=== PATIENT | female | born 2005 | race Two or more races ===

== ENCOUNTER 2025-01-25 19:21 | Emergency (ER) | payer MEDICAID ==
[~2025-01-25] VITALS: Ht 154.9 cm; Wt 61.4 kg
[2025-01-25] MEDS: PREDNISONE 20MG TABLET PO ONE (20:57)
[2025-01-25 20:58] VITALS: PULSE 80; RESP 16; O2SAT 100
[2025-01-25] MEDS: IPRATROPIUM/ALBUTEROL 0.5-3(2.5)MG/3ML NEB HHN ONE (20:58)
[2025-01-25] MEDS ORDERED: P20 MT (22:22)
[2025-01-25] MEDS ORDERED: IPRA3AMP31 NEB (22:22)
[2025-01-25] MEDS ORDERED: MONT5TAB79 MT (22:22)
[2025-01-25 22:41] VITALS: BP 97/67; PULSE 72; RESP 16; TEMP 36.7; O2SAT 99
== END 2025-01-25 22:46 | disposition home or self-care (01) ==
LOC: ER 19:21
DX: J45.901 Unspecified asthma with (acute) exacerbation (principal); Z79.899 Other long term (current) drug therapy; Z79.52 Long term (current) use of systemic steroids
CPT/HCPCS: 71045; 94640; 98960; 99283; J7512; Z7610 ×3; 94070; 94664